=== PATIENT | female | born 1980 ===

== ENCOUNTER 2021-02-01 02:10 | Inpatient (IN) | payer OTHER ==
[~2021-02-01] VITALS: Ht 167.6 cm; Wt 100.0 kg
[2021-02-01] MEDS ORDERED: OXYTOCIN 30U/ 0.9% NaCL 500ML 500 ML ONE (02:39)
[2021-02-01] MEDS ORDERED: NEWBORN KIT ONE (02:39)
[2021-02-01] MEDS ORDERED: MISOPROSTOL 200 MCG TABLET ONE (02:39)
[2021-02-01] MEDS ORDERED: LIDOCAINE 1%, 20ML ONE (02:39)
[2021-02-01] MEDS ORDERED: FENTANYL PF 100 MCG/2ML IVPush PRN (03:00)
[2021-02-01] MEDS ORDERED: ONDANSETRON 2MG/ML, 2ML IVPush PRN (03:00)
[2021-02-01] MEDS ORDERED: D5%-LACTATED RINGERS 1,000 ML IV SCH (03:00)
[2021-02-01] MEDS ORDERED: TERBUTALINE 1 MG/ML, 1ML IVPush PRN (03:00)
[2021-02-01] MEDS ORDERED: TERBUTALINE 1 MG/ML, 1ML SQ PRN (03:00)
[2021-02-01] MEDS ORDERED: FENTANYL PF 100 MCG/2ML IV PRN (03:00)
[2021-02-01] MEDS ORDERED: OXYTOCIN 30U/ 0.9% NaCL 500ML 500 ML IV PRN (03:00)
[2021-02-01] MEDS ORDERED: CALCIUM CARBONATE 500 MG TAB.CHEW PO PRN (03:00)
[2021-02-01] MEDS ORDERED: OXYTOCIN 30U/ 0.9% NaCL 500ML 500 ML IV ONE (03:00)
[2021-02-01] MEDS: LACTATED RINGERS 1,000 ML IV SCH ×3 (03:06→19:00)
[2021-02-01 03:11] LABS: BASOPHILS % (AUTO) 0 % (0-1); EOSINOPHILS % (AUTO) 0 % (1-7); LYMPHOCYTES % (AUTO) 10 % (22-44); MEAN CORPUSCULAR HEMOGLOBIN 29.7 pg (27.0-34.8); MEAN CORPUSCULAR HGB CONC 33.3 g/dL (32.4-35.8); MEAN PLATELET VOLUME 7.9 fL (7.4-10.4); MONOCYTES % (AUTO) 8 % (2-9); NEUTROPHILS % (AUTO) 82 % (42-75); PLATELET COUNT 253 x10^3/uL (130-400); RED BLOOD COUNT 4.59 x10^6/uL (3.82-5.3); RED CELL DISTRIBUTION WIDTH 15.5 % (9.6-15.2)
[2021-02-01 03:51] LABS: MD NO
[2021-02-01] MEDS ORDERED: BUPIVACAINE 0.25% ONE (04:01)
[2021-02-01] MEDS ORDERED: FENTANYL/BUPIV./NS/PF 250 ML EPIDCONT ONE (04:01)
[2021-02-01] MEDS ORDERED: EPHEDRINE 50 MG/ML, 1ML IVPush PRN (04:30)
[2021-02-01] MEDS ORDERED: LACTATED RINGERS 1,000 ML IVBOLUS PRN (04:30)
[2021-02-01] MEDS ORDERED: LACTATED RINGERS 1,000 ML IV SCH (04:30)
[2021-02-01] MEDS: FENTANYL/BUPIV./NS/PF 250 ML EPIDCONT SCH (04:30)
[2021-02-01 04:37] LABS: ALANINE AMINOTRANSFERASE 31 U/L (12-78); ALBUMIN 2.5 g/dL (3.4-5.0); ANION GAP 8 mmol/L (5-15); CALCIUM 8.7 mg/dL (8.5-10.1); CHLORIDE 108 mmol/L (98-107); CREATININE 0.58 mg/dL (0.55-1.02)
[2021-02-01 04:40] LABS: ALKALINE PHOSPHATASE 179 U/L (45-117); BILIRUBIN,TOTAL 0.2 mg/dL (0.2-1.0); TOTAL PROTEIN 6.7 g/dL (6.4-8.2)
[2021-02-01 05:47] LABS: MICROSCOPIC NOT IND
[2021-02-01 07:34] VITALS: BP 135/76
[2021-02-01] MEDS ORDERED: MISOPROSTOL 200 MCG TABLET PR PRN (15:30)
[2021-02-01] MEDS ORDERED: SIMETHICONE 80 MG CHEW TAB PO PRN (15:30)
[2021-02-01] MEDS ORDERED: ONDANSETRON 2MG/ML, 2ML IV PRN (15:30)
[2021-02-01] MEDS ORDERED: OXYcodone/APAP 5/325MG TABLET PO PRN ×2 (15:30)
[2021-02-01] MEDS ORDERED: METHYLERGONOVINE 0.2 MG/ML IM PRN (15:30)
[2021-02-01] MEDS ORDERED: TRANEXAMIC ACID 1,000 MG in SODIUM CHLORIDE 0.9% 100 ML IVPB ONE (15:30)
[2021-02-01] MEDS ORDERED: DOCUSATE 100 MG CAPSULE PO PRN (15:30)
[2021-02-01] MEDS: IBUPROFEN 600 MG TABLET PO PRN (16:44)
[2021-02-01] MEDS: OXYTOCIN 30U/ 0.9% NaCL 500ML 500 ML IV SCH (16:56)
[2021-02-01 19:40] VITALS: BP 127/81
[2021-02-02 00:10] VITALS: BP 119/71
[2021-02-02] MEDS: OXYTOCIN 30U/ 0.9% NaCL 500ML 500 ML IV SCH (01:30)
[2021-02-02] MEDS: LACTATED RINGERS 1,000 ML IV SCH (03:00)
[2021-02-02] MEDS: IBUPROFEN 600 MG TABLET PO PRN ×2 (03:24→10:05)
[2021-02-02 03:45] VITALS: BP 125/80
[2021-02-02] MEDS: FENTANYL/BUPIV./NS/PF 250 ML EPIDCONT SCH (04:30)
[2021-02-02 06:21] LABS: BASOPHILS % (AUTO) 0 % (0-1); EOSINOPHILS % (AUTO) 0 % (1-7); LYMPHOCYTES % (AUTO) 11 % (22-44); MEAN CORPUSCULAR HEMOGLOBIN 29.4 pg (27.0-34.8); MEAN PLATELET VOLUME 7.8 fL (7.4-10.4); MONOCYTES % (AUTO) 7 % (2-9); NEUTROPHILS % (AUTO) 81 % (42-75); PLATELET COUNT 200 x10^3/uL (130-400); RED BLOOD COUNT 4.18 x10^6/uL (3.82-5.3); RED CELL DISTRIBUTION WIDTH 15.6 % (9.6-15.2)
[2021-02-02 06:26] LABS: MD NO
[2021-02-02] MEDS ORDERED: DIPH,PERTUSS(ACELL),TET VAC/PF NC IM-VACC ONE ×2 (07:00→16:05)
[2021-02-02 08:30] VITALS: BP 137/83
[2021-02-02] MEDS ORDERED: PRENATAL VIT/IRON/FA 1 EACH TABLET PO SCH (09:00)
[2021-02-02 12:30] VITALS: BP 123/81
[2021-02-02] MEDS ORDERED: DOCU-131 PO (13:59)
[2021-02-02] MEDS ORDERED: IBUP-1222 PO (13:59)
== END 2021-02-02 18:15 | disposition home or self-care (01) | DRG 807 ==
LOC: LDOP 02:10 → LDIP 02:33 → 2NW 19:04
PROVIDERS: ADMIT Obstetrics & Gynecology; ATTEND Obstetrics & Gynecology
PROC: 10907ZC Drainage of Amniotic Fluid, Therapeutic from Products of Conception, Via Natural or Artificial Opening (ICD-10-PCS; principal; 2021-02-01)
PROC: 10E0XZZ Delivery of Products of Conception, External Approach (ICD-10-PCS; 2021-02-01)
PROC: 0KQM0ZZ Repair Perineum Muscle, Open Approach (ICD-10-PCS; 2021-02-01)
PROC: 0T9B70Z Drainage of Bladder with Drainage Device, Via Natural or Artificial Opening (ICD-10-PCS; 2021-02-01)
PROC: 3E0R3BZ Introduction of Anesthetic Agent into Spinal Canal, Percutaneous Approach (ICD-10-PCS; 2021-02-01)
PROC: 00HU33Z Insertion of Infusion Device into Spinal Canal, Percutaneous Approach (ICD-10-PCS; 2021-02-01)
DX: O71.4 Obstetric high vaginal laceration alone (principal); Z37.0 Single live birth; Z88.5 Allergy status to narcotic agent; Z3A.39 39 weeks gestation of pregnancy
CPT/HCPCS: 36415; J7121; 80053; 81003; 82570; 84156; 85025; 86592; 86850; 86900; 87635; 90715; G0378; J3010; J2590; J7120